=== PATIENT | female | born 1955 | race Caucasian/White ===

== ENCOUNTER 2019-11-18 08:15 | Outpatient (CLI) | payer OTHER, SELFPAY ==
--- NOTE | 2019-11-18 13:36 | DI.MAMMO_ITS ---
EXAM: MG MAMMO SCREENING CLINICAL HISTORY: screening,Z12.39 TECHNIQUE: Bilateral full field digital CC and MLO mammographic images were obtained with 3D tomosyn thesis and utilizing computer aided detection (CAD). COMPARISON: Available for comparison. FINDINGS: Masses/Architectural Distortion: None seen. Microcalcifications: No suspicious pleomorphic-type are seen. Skin Thickening/Nipple Retraction: None. IMPRESSION: 1. No significant interval change with no specific features of malignancy noted. 2. Unless there is more urgent need, screening mammography is recommended, as per [employer] guidelines. BI-RADS Category 1 - Negative Breast Density - Category C - Heterogeneously dense The mammogram demonstrates the patient's breast tissue is dense. Dense breast tissue is very common a nd is not abnormal but dense breast tissue can make it harder to find cancer on a mammogram. Also, de nse breast tissue may increase their breast cancer risk. This information about the result of the [facility] mogram report was provided to the patient to raise their awareness. Use this report when you speak wi th the patient about their risks for breast cancer, which includes their family history. At that time , you may recommend for more screening tests (Ultrasound or MRI) as they might be useful based on the ir risk. A negative radiographic report should not delay biopsy if a dominant or clinically suspicious mass is present. Up to ten percent of cancers are not identified on mammography. A negative report may reinforce clinical impression. Adenosis and dense breasts may obscure an underlying neoplasm. False positive reports average 6 to 10%. Patient will receive a letter notifying them of these results.
== END 2019-11-18 08:35 ==
PROVIDERS: PCP Student in an Organized Health Care Education/Training Program; Visit Provider Student in an Organized Health Care Education/Training Program
DX: Z12.31 Encounter for screening mammogram for malignant neoplasm of breast (principal)
CPT/HCPCS: 77063; 77067

== ENCOUNTER 2019-12-19 02:30 | Outpatient (CLI) | payer OTHER, SELFPAY ==
[2019-12-19 07:40] LABS: HCT 40.3 % (36.0-46.0); HGB 13.9 g/dL (12.0-15.5); Mean Corp. HGB Concentration 34.5 g/dL (32.0-36.0); Mean Corpuscular Hemoglobin 32.4 pg (27.0-33.0); Mean Corpuscular Volume 93.9 fL (80-95); Mean Platelet Volume 8.7 fL (8.0-11.0); Platelet Count 242 x1000/uL (130-400); RBC 4.29 m/cumm (4.00-5.20); RBC Distribution Width 12.9 % (11.7-14.6); White Blood Cell Count 4.81 k/cumm (4.4-10.8)
[2019-12-19 08:30] LABS: Anion Gap 7.4 mmol/L (3-11); BUN 28 mg/dL (7-18); CO2 28.6 mmol/L (21.0-32.0); CREATININE 0.77 mg/dL (0.55-1.02); Calcium 8.9 mg/dL (8.5-10.1); Chloride 105 mmol/L (98-107); Glucose 91 mg/dL (74-106); Potassium 4.1 mmol/L (3.5-5.1); Sodium 141 mmol/L (136-145)
[2019-12-19 09:02] LABS: Vitamin B12 809 pg/mL (193-986)
== END 2019-12-19 02:50 ==
PROVIDERS: PCP Student in an Organized Health Care Education/Training Program; Visit Provider Student in an Organized Health Care Education/Training Program
DX: Z86.39 Personal history of other endocrine, nutritional and metabolic disease (principal); R79.89 Other specified abnormal findings of blood chemistry
CPT/HCPCS: 36415; 80048; 82306; 85027; 82607

== ENCOUNTER 2020-04-06 09:43 | Outpatient (REF) | payer OTHER, SELFPAY ==
[2020-04-08 11:45] LABS: SARS-CoV-2 RNA Not Detected (NotDetected); SARS-CoV-2 RNA Source Nasal/Nares
== END 2020-04-06 10:03 ==
LOC: NCHCN 09:43
PROVIDERS: PCP Student in an Organized Health Care Education/Training Program; Visit Provider Nurse Practitioner Family
DX: Z11.59 Encounter for screening for other viral diseases (principal)
CPT/HCPCS: U0003

== ENCOUNTER 2020-08-17 02:17 | Outpatient (CLI) | payer OTHER, SELFPAY ==
[2020-08-17 10:05] LABS: Source Nasal/Nares
[2020-08-17 15:02] LABS: COVID-19 PCR Negative (Negative)
== END 2020-08-17 02:18 | disposition home or self-care (01) ==
LOC: LBO 02:18
PROVIDERS: PCP Student in an Organized Health Care Education/Training Program; Visit Provider Surgery
DX: Z20.828 Contact with and (suspected) exposure to other viral communicable diseases (principal)
CPT/HCPCS: 87635

== ENCOUNTER 2020-08-20 09:09 | Day surgery (SDC) | payer OTHER, SELFPAY ==
--- NOTE | 2020-08-20 06:57 | COLE_ITS ---
Date of service: 08/20/20 Time of Service: 10:25 Colonoscopy Report Date of procedure: 08/20/20 Pre-op diagnosis general: Colon Cancer Screening Post-op diagnosis procedure note: other (? small polyp in ascending colon and internal hemorrhoids) Procedure: Colonoscopy with biopsies Surgeon: Valorie Ratliff Anesthesia Type: General:No Airway (ASA 2/Irvin Saucedo, MATT) Estimated blood loss (mL): 3 Pathology: other (Ascending colon polyps?) Complications: None Disposition: same day Indications: The patient is here for Colonoscopy pre-op. Her last screening was in 2011 and was reported to be unremarkable. She has no family history of colon cancer. She has not had any bowel habit changes. -Discussed colonoscopy bowel prep as well as the procedure. Discussed possible complications of the procedure to include bleeding, pain, perforation, missed small lesion/polyp, sore throat, aspiration and adverse reaction to the medications. Questions were answered to patient?s satisfaction. No guarantees were implied or given. Prep: Miralax/Dulcolax Procedure Start Time: 10:25 Procedure End Time: 10:56 Retraction Time: 16 minutes Findings: ? two small polyps Internal hemorrhoids Procedure Description: After informed consent was obtained the patient was taken to the procedure room and placed in a left decubitous position. Monitors were applied and a time out was done. The patients name, date of , procedure, allergies to medications and metal in their body was reviewed. The patient was then sedated. Once sedated and comfortable a rectal exam was done. External exam was normal. Internal exam revealed a normal sphincter tone and no palpable masses. The scope was then introduced and retro-flexed. Grade 1 and 2 internal hemorrhoids were identified. No polyps or masses were identified on retro- flexion. The scope was then advanced to the cecum with some difficulty due to a tortuous colon. The ileocecal vlave and appendiceal orifice were identified. The prep was adequate. The scope was then slowly retracted over 16 minutes back into the rectum. Polyps were removed with cold forceps in the ascending colon. There was one diverticulum in the ascending colon. The scope was removed and the patient was woken up and taken back to Same day surgery in stable condition. The patient tolerated the procedure well and there were no immediate complications. Follow up: Follow up will depend on biopsies
--- NOTE | 2020-08-20 06:58 | W.PM.DSUDISC ---
Discharge Plan Disposition Patient Disposition: HOME Condition: Good Discharge Details Reason For Visit: Colonoscopy Attending Provider: Valorie Ratliff Primary Care Provider: Kayla Del Rio Home Meds and New Rx's Prescriptions: Continued ascorbate calcium (vitamin C) 500 mg tablet 500 mg PO DAILY RF: 0 multivitamin Tablet 1 tab PO DAILY RF: 0 Discontinued polyethylene glycol 3350 17 gram/dose powder 238 g PO ONCE Qty: 238 RF: 0 bisacodyl [Dulcolax (bisacodyl)] 5 mg tablet,delayed release (DR/EC) 5 mg PO ONCE Qty: 4 RF: 0 Discharge Instructions Additional Instructions: Findings: Possible 2 small polyps Internal hemorrhoids Follow up: Most likely 10 years Please call if you develop: fevers >101.5 Nausea or Vomiting Abdominal pain that is not transient DAY SURGERY UNIT POST ENDOSCOPY INSTRUCTIONS 1. Because there will be medication in your system for the next 24 hours, you may feel a little sleepy. Your coordination will be affected. Therefore: a. Do not drive or operate dangerous equipment for 24 hours. b. Do not drink alcohol beverages for 24 hours (not even beer). c. Plan to go home and rest for the day. 2. Generally there are no restrictions on your activity after a day or so has gone by, but you may feel a bit fatigued for a few days. 3 After you arrive home you may have a light meal and return to a normal diet as you can tolerate it without feeling sick to your stomach. 4. After surgery, you may feel pain or discomfort. This should be only transient, but if it persists please contact your doctor. 5. If there are any questions regarding the findings of your procedure, please feel free to contact your doctor. 6. If you are unable to contact your doctor with a problem, contact the hospital at [phone]. 7. Continue all your regular medications unless directed otherwise. I understand the above instructions and have no questions. Signature of Patient or Responsible Adult Escort Date/Time Name of Responsible Adult Escort Signature of Nurse Date/Time Activity:: Activity as Tolerated Diet:: As Tolerated Discharge Orders Discharge Orders: Discharge Order (Routine); Ordered 08/20/20 Ordered By: Valorie Ratliff
[2020-08-20 09:30] VITALS: BP 120/76; PULSE 60; RESP 16; TEMP 36.5; O2SAT 100
[2020-08-20] MEDS: Lactated Ringers 1,000 ML 80 ML IV (09:40)
--- NOTE | 2020-08-20 10:46 | BOWEL_PTH ---
PATIENT: Diana Gomez LOC: [facility] U#:[id number] AGE/SX: 65/F ROOM: RE08/20/[address]: Valorie Ratliff MD : [id number] BED: DIS: 08/20/2020 SPEC #: [id number] RECD: 08/20/20 12:55 STATUS: CARMELA REQ #: [id number] LUCIA: 08/20/20 10:[address]: Valorie Ratliff DEPT: Surgical Specimen RECD BY: Chio Kinney ENTERED: 08/20/20 12:55 SP TYPE: Bowel OTHR DR: Kayla Del Rio DO Tissues: 1 - BIOPSY BOWEL Procedures: GROSS AND MICRO LEVEL 4 Comments: [id number]
[2020-08-20 11:35] VITALS: BP 94/62; PULSE 52; RESP 16; TEMP 36.1; O2SAT 95
== END 2020-08-20 12:05 | disposition home or self-care (01) ==
LOC: SUR 09:10
PROVIDERS: PCP Student in an Organized Health Care Education/Training Program; Visit Provider Surgery
PROC: 0DJD8ZZ Inspection of Lower Intestinal Tract, Via Natural or Artificial Opening Endoscopic (ICD-10-PCS; CPT 45378; principal; 2020-08-20 10:45)
DX: Z12.11 Encounter for screening for malignant neoplasm of colon (principal); D12.2 Benign neoplasm of ascending colon; K64.1 Second degree hemorrhoids; E55.9 Vitamin D deficiency, unspecified; K64.0 First degree hemorrhoids; E53.8 Deficiency of other specified B group vitamins; M85.80 Other specified disorders of bone density and structure, unspecified site
CPT/HCPCS: 45380; 88305; J2001; J2704

== ENCOUNTER 2021-08-09 01:45 | Outpatient (CLI) | payer OTHER, SELFPAY ==
--- NOTE | 2021-08-09 06:45 | DI.MAMMO_ITS ---
Exam(s) MAMMO SCREENING EXAM: MAMMO SCREENING CLINICAL HISTORY: screening,z12.39. TECHNIQUE: Bilateral full field digital CC and MLO mammographic images were obtained with 3D tomosyn thesis and utilizing computer aided detection (CAD). COMPARISON: Prior mammograms were reviewed, the most recent being October 2019. FINDINGS: Fibroglandular tissue pattern is again noted be dense, this somewhat decreasing the sensitivity of th e mammogram for finding hidden underlying lesions. In the left breast on the 3D cc imaging there is an asymmetric density located medially measuring robert roximately 8 x 7 millimeters located 7 cm in from the nipple. Possible nodule. Additional imaging r equired. The opposite-right breast posteriorly there is an asymmetric density-possible small nodule measuring 5 x 6 4 millimeters located 7 cm in from the nipple, possibly significant. Additional imaging requir ed. Benign calcifications in the right breast again noted no new architectural distortion or skin th ickening-traction IMPRESSION: Dense bilateral fibroglandular tissue. Bilateral asymmetric densities which require further imaging, these located medially in left breast posteriorly in the right breast. Both more evident than on pr evious studies. Spot compression views and bilateral breast ultrasound recommended. BI-RADS Category 0 - Assessment Incomplete: Need additional imaging evaluation Breast Density - Category C - Heterogeneously dense Breast density Category C or D implies that the patient has dense breast tissue. Dense breast tissue can make it harder to find cancer on a mammogram. Dense breast tissue is also associated with an incr eased risk of breast cancer. This information about the result of the mammogram report was provided to the patient to raise their awareness. Use this report when you speak with the patient about their risks for breast cancer, which includes their family history. At that time, you may recommend additional screening tests (Ultrasoun d or MRI) as these tests may add significant information. A negative radiographic report should not delay biopsy if a dominant or clinically suspicious mass is present. Up to ten percent of cancers are not identified on mammography. A negative report may reinforce clinical impression. Adenosis and dense breasts may obscure an underlying neoplasm. False positive reports average 6 to 10%. Patient will receive a letter notifying them of these results.
== END 2021-08-09 02:05 ==
PROVIDERS: PCP Student in an Organized Health Care Education/Training Program; Visit Provider Student in an Organized Health Care Education/Training Program
DX: Z12.31 Encounter for screening mammogram for malignant neoplasm of breast (principal); R92.8 Other abnormal and inconclusive findings on diagnostic imaging of breast
CPT/HCPCS: 77063; 77067

== ENCOUNTER 2021-08-27 01:02 | Outpatient (CLI) | payer OTHER, SELFPAY ==
--- NOTE | 2021-08-27 | DI.US_ITS ---
Exam(s) US BREAST RT LIMITED US BREAST LT LIMITED MG MAMMO SCREEN CALL BACK BI EXAM: MG MAMMO SCREEN CALL BACK BI and U/S breast bilateral limited CLINICAL HISTORY: BILAT ASYMMTERIC DENSITIES. TECHNIQUE: Craniocaudal and mediolateral oblique Full Field Digital Mammography views of the bilat b reast with Computer Aided Diagnosis followed by Tomosynthesis and bilateral breast ultrasound. COMPARISON: Comparison with prior examinations. FINDINGS: Mammography/Tomosynthesis: Masses/Architectural Distortion: None seen. Microcalcifictions: No suspicious pleomorphic-type are seen. Skin Thickening/Nipple Retraction: None. Limited bilateral breast US: The medial half of the left breast was evaluated sonographically. The u pper half of the right breast was evaluated sonographically. Echotexture: Normal appearance of the glandular tissue. Shadowing: No suspicious foci. Cyst: None. Solid lesions: None seen. Ductal dilation: None. IMPRESSION: 1. No evidence of malignancy is noted. 2. A six-month follow-up bilateral mammogram is recommended for re-evaluation. 3. The findings were discussed with the patient on the date of the examination. BI-RADS Category 3 - 6 month - Probably Benign Finding: Recommend follow-up imaging in 6 months Breast Density - Category C - Heterogeneously dense Breast density Category C or D implies that the patient has dense breast tissue. Dense breast tissue can make it harder to find cancer on a mammogram. Dense breast tissue is also associated with an incr eased risk of breast cancer. This information about the result of the mammogram report was provided to the patient to raise their awareness. Use this report when you speak with the patient about their risks for breast cancer, which includes their family history. At that time, you may recommend additional screening tests (Ultrasoun d or MRI) as these tests may add significant information. A negative radiographic report should not delay biopsy if a dominant or clinically suspicious mass is present. Up to ten percent of cancers are not identified on mammography. A negative report may reinforce clinical impression. Adenosis and dense breasts may obscure an underlying neoplasm. False positive reports average 6 to 10%. Patient will receive a letter notifying them of these results.
== END 2021-08-27 01:22 ==
LOC: DI 01:04
PROVIDERS: PCP Student in an Organized Health Care Education/Training Program; Visit Provider Student in an Organized Health Care Education/Training Program
DX: Z12.31 Encounter for screening mammogram for malignant neoplasm of breast (principal); R92.8 Other abnormal and inconclusive findings on diagnostic imaging of breast; N64.59 Other signs and symptoms in breast
CPT/HCPCS: 76642; 77063; 77067

== ENCOUNTER 2022-01-31 18:24 | Outpatient (REF) | payer OTHER, SELFPAY ==
[2022-01-31 22:15] LABS: Bilirubin Negative (Negative); Blood Negative (Negative); Clarity Clear (Clear); Glucose Negative (Negative); Ketones Negative (Negative); Leukocyte Esterase Negative (Negative); Nitrite Negative (Negative); Specific Gravity <= 1.005 (1.005-1.025); Urobilinogen 0.2 EU/dL (Up TO 0.2)
== END 2022-01-31 18:25 | disposition home or self-care (01) ==
LOC: LBN 18:24
PROVIDERS: PCP Student in an Organized Health Care Education/Training Program; Visit Provider Family Medicine
DX: N39.0 Urinary tract infection, site not specified (principal)
CPT/HCPCS: 81003

== ENCOUNTER 2022-02-28 00:38 | Outpatient (CLI) | payer OTHER, SELFPAY ==
--- NOTE | 2022-02-28 07:30 | DI.MAMMO_ITS ---
Exam(s) MAMMO DIAGNOSTIC BI EXAM: MAMMO DIAGNOSTIC BI CLINICAL HISTORY: 6 mo f/u, f/u mammo, bilat asymmetric densities TECHNIQUE: Mammograms were interpreted according to the usual protocol including computer analysis w ith CAD system, tomosynthesis and C-view imaging. COMPARISON: FINDINGS: The breasts are heterogeneously dense. No dominant mass or clumped microcalcification is identified in either breast. Comparison with prior examinations including July 2021 shows no gross interval ch frederick in appearance. IMPRESSION: No specific evidence of malignancy at this time. Follow-up bilateral breast mammogram recommended in 6 months, as a today's examination was a diagnostic study. BI-RADS Category 3 - 6 month - Probably Benign Finding: Recommend follow-up mammography in 6 months Breast Density - Category C - Heterogeneously dense
== END 2022-02-28 00:58 ==
PROVIDERS: PCP Student in an Organized Health Care Education/Training Program; Visit Provider Student in an Organized Health Care Education/Training Program
DX: R92.8 Other abnormal and inconclusive findings on diagnostic imaging of breast (principal); Z80.3 Family history of malignant neoplasm of breast; Z12.31 Encounter for screening mammogram for malignant neoplasm of breast
CPT/HCPCS: 77062; 77066; G0279

== ENCOUNTER → 2023-06-26 00:51 | Outpatient (CLI) | payer BC, SELFPAY ==
--- NOTE | 2023-06-26 | DI.MAMMO_ITS ---
Exam(s) MAMMO SCREENING EXAM: MAMMO SCREENING CLINICAL HISTORY: SCREENING MAMMO FOR BREAST CANCER Z12.31 TECHNIQUE: Mammograms were interpreted according to the usual protocol including computer analysis w [employer] CAD system, tomosynthesis and C-view imaging. COMPARISON: 2016 through 2021 FINDINGS: The breasts are composed of heterogeneously dense fibroglandular densities, Breast Density category C . No suspicious masses or suspicious microcalcifications are seen. No skin thickening or abnormal axillary lymph nodes are seen. There has been no significant change from prior exams. IMPRESSION: BI-RADS Category 1, Negative mammogram. Yearly screening mammography is recommended. Breast Density Category C, heterogeneously Dense. The mammogram demonstrates the patient's breast tissue is dense. Dense breast tissue is very common a nd is not abnormal but dense breast tissue can make it harder to find cancer on a mammogram. Also, de nse breast tissue may increase breast cancer risk. This information about the result of the mammogram report was provided to the patient to raise their awareness. Use this report when you speak with the patient about their risks for breast cancer, which includes their family history. At that time, you may recommend additional screening tests (Ultrasound or MRI) as they might be useful based on their r isk. A negative radiographic report should not delay biopsy if a dominant or clinically suspicious mass is present. Up to ten percent of cancers are not identified on mammography. A negative report may reinforce clinical impression. Adenosis and dense breasts may obscure an underlying neoplasm. False positive reports average 6 to 10%.
== END ==
PROVIDERS: Visit Provider Family Medicine
DX: Z12.31 Encounter for screening mammogram for malignant neoplasm of breast (principal)
CPT/HCPCS: 77063; 77067